=== PATIENT | male | born 1985 | race Caucasian/White ===

== ENCOUNTER 2023-03-03 04:29 | Emergency (ER) | payer SELFPAY ==
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
[2023-03-03] MEDS ORDERED: IBUPROFEN 400 MG TAB ONE (05:28)
--- NOTE | 2023-03-03 05:58 | ER ---
Nurse's Notes [facility] [place] [place] Name: Kevin Carroll Age: 37 yrs Sex: Male : 1985 Arrival Date: 03/03/2023 Time: 04:29 Bed 20 Private MD: Diagnosis: Chronic fracture to left first toe;Cellulitis Presentation: 03/03 04:37 Chief complaint: Patient states: multiple bumps to bilateral legs,onset 1 month with pf1 redness and swelling to LLQ for 2 days, also C/O left great toe pain for years, worse this AM and having a right posterior headache pain of 9,onset this AM. 04:37 Coronavirus screen: Vaccine status: Patient reports being unvaccinated. Client denies pf1 travel out of the [place] in the last 14 days. At this time, the client does not indicate any symptoms associated with coronavirus-19. Ebola Screen: Patient negative for fever greater than or equal to 101.5 degrees Fahrenheit, and additional compatible Ebola Virus Disease symptoms. Initial Sepsis Screen: Does the patient meet any 2 criteria? HR > 90 bpm. No. Patient's initial sepsis screen is negative. Does the patient have a suspected source of infection? No. Patient's initial sepsis screen is negative. Risk Assessment: Do you want to hurt yourself or someone else? Patient reports no desire to harm self or others. 04:37 Method Of Arrival: Ambulatory pf1 04:37 Acuity: NOEL 4 pf1 04:37 Onset of symptoms was March 03, 2023. ha1 Historical: - Allergies: 04:52 No Known Allergies; pf1 - PMHx: 04:52 None; pf1 - PSHx: 04:52 None; pf1 - Immunization history:: Adult Immunizations up to date, Client reports having NOT received the Covid vaccine. Last tetanus immunization: < 10 years ago Flu vaccine is not up to date. - Social history:: Smoking status: Patient reports the use of cigarette tobacco products, smokes one pack cigarettes per day. Patient uses alcohol, occasionally. street drugs. - Family history:: not pertinent. Screenin:[address] [facility] ED Fall Risk Assessment (Adult) History of falling in the last 3 months, pf1 including since admission No falls in past 3 months (0 pts) Confusion or Disorientation No (0 pts) Intoxicated or Sedated No (0 pts) Impaired Gait No (0 pts) Mobility Assist Device Used No (0 pt) Altered Elimination No (0 pt) Score/Fall Risk Level 0 - 2 = Low Risk Oriented to surroundings, Maintained a safe environment, Educated pt \T\ family on fall prevention, incl call for assistance when getting out of bed, Assessed \T\ reinforced patient's understanding of fall precautions, Provided non-skid footwear, Hourly rounding (assess needs \T\ fall precautionary measures) done, Used ambulatory aids as needed (educated on \T\ assisted with), Used gait belt as appropriate. Abuse screen: Denies threats or abuse. Nutritional screening: No deficits noted. Tuberculosis screening: No symptoms or risk factors identified. Assessment: 04:53 General: Appears in no apparent distress. comfortable, well groomed, well developed, pf1 Behavior is calm, cooperative, appropriate for age, quiet. Pain: Denies pain. Neuro: Level of Consciousness is awake, alert, obeys commands, Oriented to person, place, time, situation, Reports headache in right occipital area. Cardiovascular: No deficits noted. Capillary refill < 3 seconds Patient's skin is warm and dry. Respiratory: No deficits noted. Airway is patent Respiratory effort is even, unlabored, Respiratory pattern is regular, symmetrical. GI: No deficits noted. No signs and/or symptoms were reported involving the gastrointestinal system. : No deficits noted. No signs and/or symptoms were reported regarding the genitourinary system. EENT: No deficits noted. No signs and/or symptoms were reported regarding the EENT system. Derm: Abscess located on abdomen Reports multiple knots to bilateral legs. 04:53 Musculoskeletal: Reports pain in left great toe. pf1 05:40 Reassessment: Patient and/or family updated on plan of care and expected duration. Pain ha1 level reassessed. Patient is alert, oriented x 3, equal unlabored respirations, skin warm/dry/pink. Vital Signs: 04:37 BP 158 / 110; Pulse 101; Resp 18; Temp 98.9; Pulse Ox 98% on R/A; Weight 83.91 kg; pf1 Height 5 ft. 11 in. ; 05:17 BP 158 / 111; Pulse 97; Resp 18 S; Pulse Ox 96% on R/A; ha1 05:45 BP 168 / 113; Pulse 98; Resp 18 S; Pulse Ox 97% ; ha1 04:37 Body Mass Index 25.80 (83.91 kg, 180.34 cm) pf1 ED Course: 04:34 Patient arrived in ED. es 04:36 Splint/sling/ice applied as appropriate. ha1 04:49 Jaylen Velez MD is Attending Physician. rt 04:52 Triage completed. pf1 04:57 No provider procedures requiring assistance completed. pf1 04:58 Patient has correct armband on for positive identification. Bed in low position. Call pf1 light in reach. 05:26 Foot Left 3 View XRAY In Process Unspecified. EDMS 05:57 Berny Esposito MD is Referral Physician. rt 06:08 Krystal Mistry, RN is Primary Nurse. ha1 06:12 Patient did not have IV access during this emergency room visit. ha1 06:12 Provided Education on: follow up. ha1 Administered Medications: 05:20 Drug: Ibuprofen PO 800 mg Route: PO; pf1 Medication: 05:33 VIS not applicable for this client. ha1 Outcome: 05:58 Discharge ordered by . rt 06:11 Discharged to home ambulatory. ha1 06:11 Condition: stable 06:11 Discharge instructions given to patient, Instructed on discharge instructions, follow up and referral plans. Demonstrated understanding of instructions, follow-up care. 06:13 Patient left the ED. ha1 Signatures: Dispatcher [employer] EDVT Antonia SandraKrystal Dsouza RN RN ha1 Jaylen Velez MD MD rt Micaela Foreman RN RN pf1 Corrections: (The following items were deleted from the chart) 04:52 04:50 Chief complaint: Patient states: multiple bumps to bilateral legs,onset 1 month pf1 with redness and swelling to LLQ for 2 days. pf1 05:18 04:37 Chief complaint: Patient states: multiple bumps to bilateral legs,onset 1 month pf1 with redness and swelling to LLQ for 2 days. pf1 05:20 04:53 Neuro: No deficits noted. Level of Consciousness is awake, alert, obeys commands, pf1 Oriented to person, place, time, situation, pf1
--- NOTE | 2023-03-03 05:59 | EDPHYS ---
Physician Documentation [facility] Name: Kevin Carroll Age: 37 yrs Sex: Male : 1985 Arrival Date: 03/03/2023 Time: 04: Bed 20 Private MD: ED Physician Jaylen Velez HPI: 03/03 06:58 This 37 yrs old Male presents to ER via Ambulatory with complaints of Knots under skin. rt 06:58 Patient presents to the ED with skin lesions of been present for the past few days. rt Patient states that he developed them on his shoulder, legs, arms but those do seem to resolve spontaneously, he currently has a large area overlying his stomach which is keeping him from sleeping. Otherwise, the patient does report that many years ago, he stopped his left toe accidentally. Has had a pain since then worsening somewhat after he hit on something else. Is requesting an x-ray of his foot. Denies other acute complaints at this time. Symptoms are mild in severity, no other aggravating or alleviating factors.. Historical: - Allergies: 04:52 No Known Allergies; pf1 - PMHx: 04:52 None; pf1 - PSHx: 04:52 None; pf1 - Immunization history:: Adult Immunizations up to date, Client reports having NOT received the Covid vaccine. Last tetanus immunization: < 10 years ago Flu vaccine is not up to date. - Social history:: Smoking status: Patient reports the use of cigarette tobacco products, smokes one pack cigarettes per day. Patient uses alcohol, occasionally. street drugs. - Family history:: not pertinent. ROS: 06:58 Constitutional: Negative for fever, chills, and weight loss, Respiratory: Negative for rt shortness of breath, cough, wheezing, and pleuritic chest pain, Neuro: Negative for headache, weakness, numbness, tingling, and seizure, Psych: Negative for depression, anxiety, suicide ideation, homicidal ideation, and hallucinations. 06:58 MS/extremity: Positive for pain, Negative for injury or acute deformity. 06:58 Skin: Positive for discoloration, erythema. Exam: 06:58 Constitutional: This is a well developed, well nourished patient who is awake, alert, rt and in no acute distress. Head/Face: Normocephalic, atraumatic. Chest/axilla: Normal chest wall appearance and motion. Nontender with no deformity. No lesions are appreciated. Cardiovascular: Regular rate and rhythm with a normal S1 and S2. No gallops, murmurs, or rubs. Normal PMI, no JVD. No pulse deficits. Respiratory: Lungs have equal breath sounds bilaterally, clear to auscultation and percussion. No rales, rhonchi or wheezes noted. No increased work of breathing, no retractions or nasal flaring. Abdomen/GI: Soft, non-tender, with normal bowel sounds. No distension or tympany. No guarding or rebound. No evidence of tenderness throughout. Neuro: Awake and alert, GCS 15, oriented to person, place, time, and situation. Cranial nerves II-XII grossly intact. Motor strength 5/5 in all extremities. Sensory grossly intact. Cerebellar exam normal. Normal gait. Psych: Awake, alert, with orientation to person, place and time. Behavior, mood, and affect are within normal limits. 06:58 Musculoskeletal/extremity: Minimal tenderness at base of left great toe, pulse, motor, sensation intact. 06:58 Skin: 3 cm diameter area of cellulitis without fluctuance or other evidence of abscess on the anterior abdominal wall.. Vital Signs: 04:37 BP 158 / 110; Pulse 101; Resp 18; Temp 98.9; Pulse Ox 98% on R/A; Weight 83.91 kg; pf1 Height 5 ft. 11 in. ; 05:17 BP 158 / 111; Pulse 97; Resp 18 S; Pulse Ox 96% on R/A; ha1 05:45 BP 168 / 113; Pulse 98; Resp 18 S; Pulse Ox 97% ; ha1 04:37 Body Mass Index 25.80 (83.91 kg, 180.34 cm) pf1 MDM: 04:50 Patient medically screened. rt 06:58 Differential Diagnosis Cellulitis, abscess, toe fracture. Data reviewed: vital signs, rt radiologic studies. Independent interpretation of the following test(s) in the Emergency Department X-Ray: My interpretation is No acute fracture seen on my interpretation of the x-ray images. Test considered but Not performed: Labs: Stable vital signs, only mild cellulitis, labs not indicated. Counseling: I had a detailed discussion with the patient and/or guardian regarding the historical points, exam findings, and any diagnostic results supporting the discharge/admit diagnosis, radiology results, the need for outpatient follow up. 03/03 04:55 Order name: Foot Left 3 View XRAY rt Administered Medications: 05:20 Drug: Ibuprofen PO 800 mg Route: PO; pf1 Disposition Summary: 03/03/23 05:58 Discharge Ordered Location: Home rt Problem: new rt Symptoms: are unchanged rt Condition: Stable rt Diagnosis - Chronic fracture to left first toe rt - Cellulitis rt Followup: rt - With: Berny Esposito MD - When: 10 - 14 days - Reason: Discharge Instructions: - Discharge Summary Sheet rt - Cellulitis, Adult rt - Toe Fracture rt Forms: - Medication Reconciliation Form rt - Thank You Letter rt - Antibiotic Education rt - Prescription Opioid Use rt - Patient Portal Instructions rt - Leadership Thank You Letter rt Prescriptions: - Doxycycline Hyclate 100 mg Oral Tablet - take 1 tablet by ORAL route every 12 hours; 20 tablet; Refills: 0, Product rt Selection Permitted Signatures: Dispatcher [employer] Jaylen Simpson MD MD rt Micaela Foreman, RN RN pf1
[2023-03-03 06:22] VITALS: TEMP 98.9
[2023-03-03 06:24] VITALS: BP 168/113; O2SAT 97
--- NOTE | 2023-03-03 12:51 | RAD REPORT ---
EXAM DESCRIPTION: RAD - Foot Left 3 View - 03/03/2023 5:24 am COMPARISON: None. CLINICAL HISTORY: [facility] MAIN PAIN FINDINGS: 3 views of the left foot demonstrate a small osseous fragment at the base of the first dig it. No significant joint effusion. Soft tissues are unremarkable. IMPRESSION: A small osseous fragment at the base of the first digit could represent acute or chronic fracture. Electronically signed by: Nikko Gonzalez MD 03/03/2023 5:47 AM CDT Due to temporary technical issues with the PACS/Fluency reporting system, reports are being signed by the in house radiologist without review as a courtesy to ensure prompt reporting. The interpreting r adiologist is fully responsible for the content of the report.
== END 2023-03-03 06:13 | disposition home or self-care (01) ==
LOC: ER 04:29
DX: L03.311 Cellulitis of abdominal wall (principal); S92.402A Displaced unspecified fracture of left great toe, initial encounter for closed fracture
CPT/HCPCS: 99283

== ENCOUNTER 2023-04-29 10:00 | Emergency (ER) | payer OTHER ==
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
--- NOTE | 2023-04-29 11:10 | RAD REPORT ---
EXAM DESCRIPTION: US - Extremity Nonvascular Complete - 04/29/2023 10:44 am CLINICAL HISTORY: torso, evaluate abscess Abdominal pain COMPARISON: Extremity Nonvascular Complete dated 03/14/2023 TECHNIQUE: Real-time sonographic evaluation of the area of interest was performed. FINDINGS: Along the right lateral abdomen/torso subcutaneous irregular fluid collection measuring 25 x 8 x 6 mm present compatible with abscess. Along the left lateral torso is similar collection is pr esent measuring 17 x 15 x 4 mm. Additional smaller but similar collection is present in the left uppe r thigh measuring 16 x 11 x 4 mm. IMPRESSION: Multiple subcutaneous abscesses noted as detailed.
[2023-04-29 11:26] LABS: Absolute Lymphocytes (CBC) 2.3 K/uL (0.7-4.9); Hematocrit 40.2 % (39.6-49.0); Lymphocytes % 18.6 % (15.3-44.8); MCV 92.7 fL (80-100); Platelets 284 thou/uL (152-406); RBC Red Blood Cell Count 4.33 M/uL (4.33-5.43)
[2023-04-29 11:43] LABS: Albumin 3.8 g/dL (3.4-5.0); Bilirubin Total 0.5 mg/dL (0.2-1.0); Potassium 3.9 mEq/L (3.5-5.1); Protein, Total 7.6 g/dL (6.4-8.2)
--- NOTE | 2023-04-29 12:21 | EDPHYS ---
Physician Documentation [facility] Name: Kevin Carroll Age: 38 yrs Sex: Male : 1985 Arrival Date: 04/29/2023 Time: 10:00 Bed 13 Private MD: ED Physician Pineda Sinha HPI: 04/29 12:26 This 38 yrs old Male presents to ER via Ambulatory with complaints of Rash, Leg kb Swelling. 12:26 the patient presents with a swollen area of the left quadriceps and anterior aspect of kb right lateral abdomen and anterior aspect of left lateral abdomen. Description: erythematous, swollen, warm. Onset: The symptoms/episode began/occurred 1 week(s) ago. Possible cause(s): unknown. Associated signs and symptoms: Pertinent positives: erythema, swelling. Modifying factors: the symptoms are alleviated by nothing, the symptoms are aggravated by nothing. Severity of symptoms: At their worst the symptoms were moderate, in the emergency department the symptoms are unchanged. The patient has not experienced similar symptoms in the past. The patient has not recently seen a physician. Pt reports 3 abscesses to torso and one to left thigh that started a week or two ago but have now become red, warm and swollen. Historical: - Allergies: 10:21 No Known Allergies; nj1 - PMHx: 10:21 None; nj1 - Immunization history:: Client reports having NOT received the Covid vaccine. - Social history:: Smoking status: Patient reports the use of cigarette tobacco products, smokes one pack cigarettes per day. ROS: 12:24 Constitutional: Negative for fever, chills, and weight loss, kb 12:24 Skin: Positive for abscess, erythema, swelling, of the anterior aspect of left lateral abdomen, anterior aspect of right lateral abdomen and left quadriceps, 12:24 All other systems are negative, Exam: 12:24 Constitutional: This is a well developed, well nourished patient who is awake, alert, kb and in no acute distress. Head/Face: Normocephalic, atraumatic. ENT: Moist Mucous membranes Cardiovascular: Regular rate Respiratory: Respirations even and unlabored. No increased work of breathing. Talking in full sentences Abdomen/GI: Soft, non-tender. No distention MS/ Extremity: Pulses equal, no cyanosis. Neurovascular intact. Full, normal range of motion. Neuro: Awake and alert, GCS 15, oriented to person, place, time, and situation. Moves all extremities. Normal gait. 12:24 Skin: abscess, that is moderate sized, of the anterior aspect of right lateral abdomen and anterior aspect of left lateral abdomen, with fluctuance, that is mild, 12:25 Skin: abscess, that is moderate sized, of the left quadriceps, with fluctuance, with kb surrounding cellulitis, that is mild, that is moderate, Vital Signs: 10:18 BP 133 / 93; Pulse 81; Resp 18; Temp 98.9; Pulse Ox 95% ; Weight 90.72 kg; Height 5 ft. nj1 11 in. ; 12:00 BP 135 / 90; Pulse 85; Resp 16; Pulse Ox 99% ; ko1 10:18 Body Mass Index 27.89 (90.72 kg, 180.34 cm) nj1 MDM: 10:03 Patient medically screened. kb 12:20 Data reviewed: vital signs, nurses notes. kb 12:21 Consideration of Admission/Observation Patient was admitted/placed on observation. kb Escalation of care including admission/observation considered. Management of patient was discussed with the following: Tram Driver: Dr Bishop, will see pt in ED. Wants antibiotics started and NPO after midnight. Counseling: I had a detailed discussion with the patient and/or guardian regarding the historical points, exam findings, and any diagnostic results supporting the discharge/admit diagnosis, lab results, radiology results, the need for further work-up and treatment in the hospital. Refusal of service: The patient/guardian displays adequate decision making capability and despite a detailed discussion of alternatives, benefits, risks, and consequences refuses: Admission to the hospital for further work-up and treatment. 12:22 Differential diagnosis: abscess, allergic reaction, cellulitis, insect bite. ED course: kb Pt states he cannot stay in the hospital. States he would like to sign out AMA at this time. Pt educated on risks of leaving including development of sepsis and . Pt still wants to leave. Antibiotics written and pt educated on follow up with Dr Butcher. Verbal understanding received. . 15:07 ED course: Attempted to get pt to stay in the hospital multiple times. Asked pt to stay kb to get a dose of IV antibiotics before leaving, but pt declined. . 04/29 10:18 Order name: Blood Culture Adult (2) 04/29 10:18 Order name: CBC with Diff; Complete Time: 11:37 kb 04/29 10:18 Order name: CMP; Complete Time: 12:02 kb 04/29 10:18 Order name: Lactate w/ 2H reflex if indic.; Complete Time: 12:02 kb 04/29 11:25 Order name: Hemoglobin A1c kb 04/29 10:44 Order name: Extremity Nonvascular Complete; Complete Time: 11:13 EDMS 04/29 10:18 Order name: Accucheck; Complete Time: 12:13 kb 04/29 10:18 Order name: IV Saline Lock - Large Bore; Complete Time: 11:30 kb 04/29 10:18 Order name: Labs collected and sent; Complete Time: 11:30 kb 04/29 10:18 Order name: O2 Per Protocol; Complete Time: 11:30 kb 04/29 10:18 Order name: O2 Sat Monitoring; Complete Time: 11:30 kb 04/29 10:18 Order name: Vital Signs; Complete Time: 12:13 kb Administered Medications: 12:25 Not Given (Patient Refused): vancomycin1 grams IVPB once over 2 hrs ko1 Disposition: 14:22 Co-signature as Attending Physician, Pineda Sinha MD I reviewed the patient's care rn provided by the Advanced Practice Provider and agree with the diagnosis and treatment plan. Disposition Summary: 04/29/23 12:20 Discharge Ordered Notes: Location: Home kb Condition: Stable kb Diagnosis - Cutaneous abscess of abdominal wall kb - Cutaneous abscess of chest wall kb - Cutaneous abscess of left lower limb kb - Cellulitis of left lower limb kb Followup: kb - With: Private Physician - When: 2 - 3 days - Reason: Recheck today's complaints, Continuance of care, Re-evaluation by your physician Followup: kb - With: Emergency Department - When: As needed - Reason: Worsening of condition Followup: kb - With: Juan Carlos Bishop MD - When: 1 - 2 days - Reason: Recheck today's complaints Discharge Instructions: - Discharge Summary Sheet kb - Skin Abscess, [id number] kb - Cellulitis, Adult, [id number] kb Forms: - Medication Reconciliation Form kb - Thank You Letter kb - Antibiotic Education kb - Prescription Opioid Use kb - Patient Portal Instructions kb - Leadership Thank You Letter kb Prescriptions: - Cephalexin 500 mg Oral Capsule - take 1 capsule ORAL route every 8 hours for 10 days; 30 capsule; Refills: 0, kb Product Selection Permitted - Bactrim DS 800-160 mg Oral Tablet - take 1 tablet ORAL route every 12 hours for 10 days; 20 tablet; Refills: 0, kb Product Selection Permitted Signatures: Dispatcher [employer] EDJuana Orellana FNP-C FLEXOGRAPHIC PRESS HELPER-Pineda Nolasco MD MD rn Oliver, Kathy RN RN ko1 Lia Dickens RN RN nj1 Corrections: (The following items were deleted from the chart) 10:22 10:21 PMHx: Anxiety; nj1 nj1 10:22 10:21 PMHx: Hypertensive disorder; ny1 nj1 10:44 10:18 Extrmty Nonvasular Limited+US.RAD.BRZ ordered. EDMS EDMS 11:36 11:18 Extrmty Nonvasular Limited+US.RAD.BRZ ordered. EDMS EDMS
--- NOTE | 2023-04-29 12:21 | ER ---
Nurse's Notes [facility] Name: Kevin Carroll Age: 38 yrs Sex: Male : 1985 Arrival Date: 04/29/2023 Time: 10:00 Bed 13 Private MD: Diagnosis: Cutaneous abscess of abdominal wall;Cutaneous abscess of chest wall;Cutaneous abscess of left lower limb;Cellulitis of left lower limb Presentation: 04/29 10:18 Chief complaint:. Chief complaint: Patient states: Skin problem, redness, swelling nj1 spots on thorax and left upper leg, noticed a couple weeks ago. They started as "knots", have gotten red, warm and itch some, painful upon palpation. Coronavirus screen: Vaccine status: Patient reports being unvaccinated. Ebola Screen: Patient denies travel to an Ebola-affected area in the 21 days before illness onset. Initial Sepsis Screen: Does the patient meet any 2 criteria? No. Patient's initial sepsis screen is negative. Does the patient have a suspected source of infection? No. Patient's initial sepsis screen is negative. Risk Assessment: Do you want to hurt yourself or someone else? Patient reports no desire to harm self or others. Onset of symptoms was April 2023. 10:18 Method Of Arrival: Ambulatory nj1 10:18 Acuity: NOEL 3 nj1 Historical: - Allergies: 10:21 No Known Allergies; nj1 - PMHx: 10:21 None; nj1 - Immunization history:: Client reports having NOT received the Covid vaccine. - Social history:: Smoking status: Patient reports the use of cigarette tobacco products, smokes one pack cigarettes per day. Screenin:00 [facility] ED Fall Risk Assessment (Adult) History of falling in the last 3 months, ko1 including since admission No falls in past 3 months (0 pts) Confusion or Disorientation No (0 pts) Intoxicated or Sedated No (0 pts) Impaired Gait No (0 pts) Mobility Assist Device Used No (0 pt) Altered Elimination No (0 pt) Score/Fall Risk Level 0 - 2 = Low Risk Oriented to surroundings, Maintained a safe environment, Educated pt \\T\\ family on fall prevention, incl call for assistance when getting out of bed, Assessed \\T\\ reinforced patient's understanding of fall precautions, Provided non-skid footwear, Hourly rounding (assess needs \\T\\ fall precautionary measures) done, Used ambulatory aids as needed (educated on \\T\\ assisted with), Used gait belt as appropriate. Abuse screen: Denies threats or abuse. Denies injuries from another. Nutritional screening: No deficits noted. Tuberculosis screening: No symptoms or risk factors identified. Assessment: 12:00 General: Appears in no apparent distress. Pain: Denies pain. ko1 Vital Signs: 10:18 BP 133 / 93; Pulse 81; Resp 18; Temp 98.9; Pulse Ox 95% ; Weight 90.72 kg; Height 5 ft. nj1 11 in. ; 12:00 BP 135 / 90; Pulse 85; Resp 16; Pulse Ox 99% ; ko1 10:18 Body Mass Index 27.89 (90.72 kg, 180.34 cm) nj1 ED Course: 10:01 Patient arrived in ED. rg4 10:03 Juana Morris FNP-C [facility] kb 10:03 Pineda Sinha MD is Attending Physician. kb 10:21 Triage completed. nj1 10:22 Arm band placed on left wrist. nj1 10:44 Extremity Nonvascular Complete In Process Unspecified. EDMS 11:35 Ligia Mcnulty, LUÍS is Primary Nurse. ko1 12:00 Patient has correct armband on for positive identification. Bed in low position. ko1 Provided Education on: na. 12:00 No provider procedures requiring assistance completed. ko1 12:13 Hemoglobin A1c Sent. ko1 12:21 Juan Carlos Bishop MD is Referral Physician. kb 12:41 IV discontinued, intact, bleeding controlled, No redness/swelling at site. Pressure ko1 dressing applied. Administered Medications: 12:25 Not Given (Patient Refused): vancomycin1 grams IVPB once over 2 hrs ko1 Medication: 12:00 VIS not applicable for this client. ko1 Outcome: 12:20 Discharge ordered by . kb 12:41 Discharged to home ambulatory, ko1 12:41 Condition: stable 12:41 Discharge instructions given to patient, Instructed on discharge instructions, follow up and referral plans. medication usage, Demonstrated understanding of instructions, follow-up care, medications, Prescriptions given X 2, 12:42 Patient left the ED. ko1 Signatures: Dispatcher [employer] EDNC Juana Morris FNP-C FNP-Ckb Garcia, Rubi rg4 Ligia Mcnulty, RN RN ko1 Lia Dickens RN RN nj1 Corrections: (The following items were deleted from the chart) 10: PMHx: Anxiety; nj1 nj1 PMHx: Hypertensive disorder; nj1 nj1
[2023-04-29] MEDS ORDERED: NA CHLORIDE 0.9% 250 ML ONE (12:28)
[2023-04-29] MEDS ORDERED: VANCOMYCIN 1 GM/VIAL ONE (12:28)
[2023-04-29 12:48] VITALS: TEMP 98.9
[2023-04-29 12:49] VITALS: BP 135/90; O2SAT 99
--- NOTE | 2023-04-30 12:28 | EKG ---
Test Date: 2023-04-29 Test Time: 11:11:18 Multifocal Button Inspector: PANCHO MEASUREMENT RESULTS: Intervals: Rate: 81 FL: 152 QRSD: 112 QT: 366 QTc: 425 [place]: P: 47 FL: 152 QRS: 14 T: 54 INTERPRETIVE STATEMENTS: Normal sinus rhythm Incomplete right bundle branch block Borderline ECG No previous ECG available for comparison Electronically Signed On 04-30-23 12:24:52 CDT by Denver Gruber
== END 2023-04-29 12:42 | disposition home or self-care (01) ==
LOC: ER 10:00
DX: L03.116 Cellulitis of left lower limb (principal); L02.211 Cutaneous abscess of abdominal wall; L02.213 Cutaneous abscess of chest wall; L02.416 Cutaneous abscess of left lower limb; F17.210 Nicotine dependence, cigarettes, uncomplicated
CPT/HCPCS: 93005; 87040 ×2; 85025; 36415; 83605; 80053; 76881; 99283; J7050

== ENCOUNTER 2024-03-24 17:29 | Emergency (ER) | payer BC ==
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
--- NOTE | 2024-03-24 20:27 | RAD REPORT ---
EXAM DESCRIPTION: RAD - Neck Soft Tissue - 03/24/2024 8:10 pm CLINICAL HISTORY: Neck pain FINDINGS: Visualized airway appears unremarkable Prevertebral soft tissue normal Mild spondylosis distal cervical spine No fracture or dislocation seen
[2024-03-24] MEDS ORDERED: KETOROLAC 30 MG/ML INJ ONE (20:29)
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
[2024-03-24 21:30] VITALS: BP 137/99; TEMP 98.4; O2SAT 99
== END 2024-03-24 20:49 | disposition home or self-care (01) ==
LOC: ER 17:29
DX: S16.1XXA Strain of muscle, fascia and tendon at neck level, initial encounter (principal)
CPT/HCPCS: 70360; 96372; 99284